=== PATIENT | male | born 1950 | race Caucasian/White ===

== ENCOUNTER → 2024-03-04 | Outpatient (CLI) | payer BC ==
[2024-03-04 17:36] LABS: INR 0.9 (<1.2); Partial Thromboplastin Time 24.9 sec (22.0-30.0)
[2024-03-05 02:52] LABS: HCT 46.8 % (39.6-50.0); HGB 15.8 g/dL (13.0-17.0); MCH 31.3 pg (27.0-32.0); MCHC 33.8 g/dL (32.0-37.0); MCV 92.9 FL (80.0-97.0); Mean Platelet Volume 11.4 FL (9.5-12.2); NRBC Per 100 WBC 0 X 10*3/uL (0.00-0.01); Platelet Count 258 X 10*3/uL (140-440); RBC 5.04 X 10*6/uL (4.40-5.60); RDW 12.9 % (11.5-14.5)
[2024-03-05 03:16] LABS: ALT 17 U/L (10-49); AST 18 U/L (14-35); Albumin 4.6 g/dL (3.8-4.9); Alkaline Phosphatase 164 U/L (41-126); BUN/Creat Ratio 17.18 Ratio (12.00-20.00); Blood Urea Nitrogen 18.9 mg/dL (9.0-27.0); Calcium 9.5 mg/dL (8.7-10.3); Carbon Dioxide 20.9 mmol/L (21.6-31.8); Chloride 103 mmol/L (96-109); Globulin 2.7 g/dL (1.6-3.3); Glucose 106 mg/dL (70-110); Potassium 4.4 mmol/L (3.5-5.5); Sodium 140 mmol/L (135-145); Total Bilirubin 0.5 mg/dL (0.3-1.2); Total Protein 7.3 g/dL (6.2-8.2)
== END | disposition home or self-care (01) ==
LOC: LABPAT 15:13
PROVIDERS: ATTEND Orthopaedic Surgery
DX: Z01.818 Encounter for other preprocedural examination (principal); I45.10 Unspecified right bundle-branch block; I49.8 Other specified cardiac arrhythmias; M16.11 Unilateral primary osteoarthritis, right hip; Z22.322 Carrier or suspected carrier of Methicillin resistant Staphylococcus aureus
CPT/HCPCS: 36415; 80053; 83036; 85027; 85610; 85730; 86850; 86900; 86901; 87070; 93005

== ENCOUNTER 2024-03-13 08:34 | Day surgery (SDC) | payer MEDICARE ==
[~2024-03-13 08:34] MED LIST: TRANEXAMIC 1,000 MG/100ML-NACL 1,000 MG in SALINE 1 100ML.BAG IV PRN; TRANEXAMIC 1,000 MG/100ML-NACL 1,000 MG in SALINE 1 100ML.BAG IVPB PRN
[2024-03-13] MEDS: fentaNYL (PF) 50 MCG/ML 2 ML AMP IVP ONE (08:40)
[2024-03-13] MEDS: MIDAZOLAM 2 MG/2 ML VIAL IVP ONE (08:40)
[2024-03-13] MEDS ORDERED: HYDROmorphone 0.5 MG/0.5 ML SYRINGE IVP PRN ×4 (08:51→10:31)
[2024-03-13] MEDS ORDERED: MIDAZOLAM 2 MG/2 ML VIAL IV PRN (08:51)
[2024-03-13] MEDS: LACTATED RINGERS 1,000 ML IV SCH (09:22)
[2024-03-13] MEDS: ACETAMINOPHEN TAB 500 MG TAB PO PRN (09:33)
[2024-03-13] MEDS: KETOROLAC 15 MG/ML 1 ML VIAL IVP PRN (09:33)
[2024-03-13] MEDS: DEXAMETHASONE SOD PHOSPHATE 10 MG/ML 1 ML VIAL IV PRN (09:33)
[2024-03-13] MEDS: FAMOTIDINE 20 MG/2 ML VIAL IVP PRN (09:33)
[2024-03-13] MEDS: ONDANSETRON 4 MG/2 ML VIAL IVP PRN (09:33)
[2024-03-13] MEDS: oxyCODONE ER 10 MG TAB.ER.12H PO PRN (09:33)
[2024-03-13] MEDS: DOCUSATE 100 MG CAP PO PRN (09:33)
--- NOTE | 2024-03-13 10:08 | P.ANPRN ---
Procedure Note - Anesthesia - Nerve Block Performed Right Ray Single Time Out Performed: Yes Date of Procedure: 03/13/24 Procedure Start Time: 09:39 Procedure Stop Time: 09:46 Location of Patient: PreOp Indication: Acute Post-Operative Pain, Requested by Surgeon Sedation Type: Sedate with meaningful contact maintained Preparation: Sterile Prep Position: Supine Needle Types: Pajunk Needle Gauge: 21 Ultrasound used to visualize needle placement: Yes Ultrasound used to observe medication spread: Yes Injectate: 0.5% Ropivacaine (see comment for volume) (25 ML + 4 MG dEXAMETHASON) Blood Aspirated: No Pain Paresthesia on Injection Noted: No Resistance on Injection: Normal Image Stored and Saved: Yes Events: Uneventful and Well Tolerated
[2024-03-13] MEDS ORDERED: DEXAMETHASONE SOD PHOSPHATE 4 MG/ML 1 ML VIAL ONE (10:11)
[2024-03-13] MEDS ORDERED: fentaNYL (PF) 50 MCG/ML 2 ML AMP ONE (10:11)
[2024-03-13] MEDS ORDERED: GLYCOPYRROLATE 0.2 MG/ML 2 ML VIAL ONE (10:11)
[2024-03-13] MEDS ORDERED: TRANEXAMIC 1,000 MG/100ML-NACL PREMIX BAG ONE (10:11)
[2024-03-13] MEDS ORDERED: PROPOFOL 10 MG/ML 20 ML VIAL IV ONE (10:11)
[2024-03-13] MEDS ORDERED: ROPIVACAINE 5 MG/ML 30 ML VIAL ONE (10:11)
[2024-03-13] MEDS ORDERED: SUCCINYLCHOLINE CHLORIDE 200 MG/10 ML VIAL IV ONE (10:11)
[2024-03-13] MEDS ORDERED: LIDOCAINE 1% INJ 10MG/ML (20 ML MDV) ONE (10:11)
[2024-03-13] MEDS ORDERED: ROCURONIUM 10 MG/ML (5 ML VIAL) IV ONE (10:11)
[2024-03-13] MEDS ORDERED: HYDROmorphone (PF) 1 MG/ML ONE (10:11)
[2024-03-13] MEDS ORDERED: NEOSTIGMINE 1 MG/ML 10 ML VIAL ONE (10:11)
[2024-03-13] MEDS ORDERED: ONDANSETRON 4 MG/2 ML VIAL IVP PRN (10:31)
[2024-03-13] MEDS ORDERED: ACETAMINOPHEN TAB 325 MG TAB PO PRN (10:31)
[2024-03-13] MEDS ORDERED: traMADol 50 MG TAB PO PRN (10:31)
[2024-03-13] MEDS ORDERED: MAGNESIUM HYDROXIDE 2,400 MG/30 ML CUP PO PRN (10:31)
[2024-03-13] MEDS ORDERED: NALOXONE 0.4 MG/ML 1 ML VIAL IV PRN (10:31)
[2024-03-13] MEDS ORDERED: HYDROcodone/APAP 5-325MG 1 EACH TAB PO PRN (10:31)
[2024-03-13] MEDS: ROPIVACAINE/EPI/CLONIDINE/KET 50 ML SYRINGE MISCELLANE PRN (10:56)
[2024-03-13] MEDS: LACTATED RINGERS 1,000 ML IV ONE (11:57)
[2024-03-13] MEDS: MULTIVITAMINS, THERA 1 EACH TAB PO SCH (12:34)
--- NOTE | 2024-03-13 12:40 | P.OP ---
Date of Procedure: 03/13/24 Preoperative Diagnosis: severe right hip osteoarthritis Postoperative Diagnosis: same Procedure(s) Performed: right direct anterior total hip arthroplasty Implants: 1. [place] Trident II Acetabular Cup, Size #56 2. Amarjit Insignia Size # 6 Femoral Stem, High Offset 3. Biolox delta femoral head, 36 mm, - 5 mm neck Anesthesia: HARI, pratik Surgeon: Adonis Johnson Backend Java Developer #1: Igor Hurst Estimated Blood Loss (ml): 300 IV fluids (ml): 900 Pathology: none sent Condition: stable Disposition: PACU Indications for Procedure: I had a long discussion with the patient in the office on the potential risks and complications of an elective total hip replacement through a direct anterior approach. Risks discussed include, but are certainly not limited to, risks from anesthesia, superficial infection requiring local wound care or antibiotics, deep stacia-prosthetic joint infection and the treatment required to eradicate infection, intraoperative fracture, postoperative periprosthetic fracture, damage to local blood vessels or nerves particularly the lateral femoral cutaneous nerve, delayed wound healing requiring local wound care or possibly surgical debridement, hip dislocation, leg length discrepancy, soft tissue irritation around the total hip implant such as iliopsoas tendinitis or trochanteric bursitis, wear and osteolysis from the implants, squeaking or audible noises, groin pain, thigh pain, heterotopic ossification, stiffness, aseptic loosening of the implants, dissatisfaction with surgical outcome, need for revision surgery, DVT, PE, swelling of the operative extremity, acute coronary event, stroke, failure to thrive, and possibly loss of life or limb. The patient understands that while these are the most common complications after an elective hip replacement there are certainly other less common complications possible. They were given ample time to ask questions regarding the potential complications of a hip replacement. Following our discussion the patient pr ovided their verbal and written consent to go forward with an elective total hip replacement. Operative Findings: severe right hip osteoarthritis Description of Procedure: The patient was identified in the preoperative holding area and the correct hip was marked with my initials. I reviewed the procedure and consent with the patient. All of their questions were answered. The patient was then brought back into the operating room by anesthesia. While on the [facility] anesthesia was administered by the anesthesia team. Preoperative antibiotics and tranexamic acid were also given. After the patient was under anesthesia I examined their ankles to determine their preoperative leg length discrepancy. The skin over the anterior aspect of the hip was shaved to remove hair over the site of planned incision. Both feet and ankles were padded with webril and boots for the [place] were applied. The patient was then carefully transferred onto the [place] table. A perineal post was immediately placed. The arms were placed on arm holders and were well-padded. Both boots were secured to the spars on the [place] table. The patient was positioned so that the pelvis was centered over the post. Nonsterile drapes were applied. A timeout was performed identifying the correct patient, operative extremity, and procedure. At this point fluoroscopy was brought in to take preoperative images of the pelvis and operative hip. Using the standing AP pelvis from the office as a template, a comparable image was obtained with fluoroscopy. A metallic bar was used to create a bi-ischial line for use as a reference to leg length adjustments during the procedure. Global offset was also measured on both the operative and nonoperative leg. Fluoroscopy was then brought out and a pre-scrub using a chlorhexidine scrub brush was performed. The operative limb was then prepped and draped in the standard sterile fashion. An anterior longitudinal incision was made lateral and distal to the ASIS. The skin and subcutaneous tissues were incised sharply. The underlying tensor fascia was identified and incised in its midportion. The fascia was dissected free from the underlying muscle and the muscle belly was retracted. A blunt tipped cobra retractor was placed over the superior neck under the muscle fibers of the gluteus minimus. The deep enveloping fascia of the tensor was incised. The anterior leash of vessels were then identified and cauterized. The fascia between the rectus and the capsule was then incised and the pre-capsular fat was excised. A second Cobra was placed inferior to the neck. The interval between the rectus and iliocapsularis and the hip capsule was developed and a retractor was placed carefully over the anterior rim of the acetabulum. A T-shaped anterior capsulotomy was performed. The superior capsular leaflet was left in place in the inferior capsular flap was excised. The Cobra retractors were placed intracapsularly. We then made a femoral neck osteotomy according to preoperative and intraoperative templating and confirmed the level of the osteotomy using fluoroscopic imaging. The femoral head was removed, passed off to the back table, and sized. The superior capsular flap was excised. Retractors were placed circumferentially exposing the acetabulum. We then circumferentially debrided the acetabulum free of labrum and osteophytes. The pulvinar was removed to fully visualize the cotyloid fossa. We then sequentially reamed to achieve peripheral fit and excellent bleeding subchondral bone. The socket was thoroughly irrigated. The acetabular component was impacted into the appropriate position using fluoroscopy to guide version, inclination, and depth of insertion taking care to have a comparable image of the AP pelvis to the standing image taken in the office. An excellent press-fit was achieved and final position was confirmed using fluoroscopy. The press fit was augmented with bony cancellus dome screws. The liner was then impacted into the socket. Attention was then turned to the femur. The remnant dorsal lateral capsule was excised. The short external rotators were visible and protected. A bone hook was used to confirm appropriate translation of the trochanter away from the acetabulum. The leg was then extended and adducted and the bone hook was used to elevate the femur for broaching. A box osteotome and blunt tipped canal sound was then utilized to gain access to the femoral canal. We then sequentially broached the femur in appropriate anteversion until excellent torsional stability was achieved. The neck cut was brought flush to the trial broach with a calcar planar. A trial neck and head were then placed onto the broach and the hip was atraumatically reduced under direct visualization. External rotation to 90 was performed to assess stability. Fluoroscopy was brought in. An AP and lateral fluoroscopic image of the proximal femur was obt ained to assess position and fill of the trial broach. An AP of the pelvis was then obtained and matched to the preoperative image taken. A bi-ischial bar was then placed and measurements were taken to assess changes in length and offset. The hip was then carefully dislocated, the proximal femur was exposed, and the trial implants were removed. The wound and proximal femur was thoroughly irriga [place] using sterile saline and pulsatile lavage. The final femoral implant was dispensed and gently tapped into place generating an excellent press-fit. The trunnion was cleansed and the final head was tapped into place to engage the Srinivasan taper. The acetabulum was irrigated and visualized to be free of debris. The hip was carefully reduced. Stability was checked clinically with external rotation to 90 and there was no evidence of instability. Final fluoroscopic images were taken. The wound was then thoroughly irrigated and soaked with a dilute Betadine rinse for 3 minutes. 3 L of sterile saline was irrigated through the wound using pulsatile lavage. Local anesthetic cocktail was injected into the soft tissues around the surgical field. The wound was then closed in layers. A sterile dressing was placed over the surgical incision. The drapes were taken down and the patient was carefully transferred off of the [place] table. Following removal of the boots the leg lengths felt acceptable. The patient was then taken to recovery room having tolerated the procedure well. Igor Hurst PA-C quite as a skilled behavioral assistant for patient positioning, draping, exposure, retraction, closure of wound, and application of dressing. PLAN: The patient can weight-bear as tolerated on the operative extremity. DVT prophylaxis with aspirin 81 mg twice a day based on preoperative risk str atification. Physical therapy for gait training. Leave surgical dressing in place. Internal medicine for perioperative medical management.
--- NOTE | 2024-03-13 13:03 | FL ---
EXAMINATION TYPE: FL guidance operating room, XR Hip Limited RT Intraoperative/procedural fluoroscopi c services were provided. Total fluoroscopy time is 56.9 seconds with a total of 7 submitted images t o PACS. Please see the operative/procedural note for further details. DAP: 3.2385 Gycm2
[2024-03-13] MEDS: SENNOSIDES-DOCUSATE SODIUM 1 EACH TAB PO SCH (19:41)
[2024-03-13] MEDS: ASPIRIN 81 MG PO SCH (19:42)
[2024-03-13] MEDS ORDERED: OXYMETAZOLINE 0.05% NASL SPRAY 1 SPRAY BOTTLE EA NOSTRIL PRN (20:51)
[2024-03-13] MEDS ORDERED: METRONIDAZOLE TOPICAL PRN (20:51)
[2024-03-13] MEDS: HYDROcodone/APAP 10-325MG 1 EACH TAB PO PRN (20:57)
[2024-03-14] MEDS: PANTOPRAZOLE 40 MG TABLET PO SCH (05:24)
[2024-03-14 07:14] VITALS: BP 125/70; PULSE 87; RESP 17; TEMP 97.8
[2024-03-14] MEDS: LOSARTAN 50 MG TAB PO SCH (07:49)
[2024-03-14] MEDS: NIFEdipine XL 90 MG TAB.ER.24 PO SCH (07:50)
[2024-03-14] MEDS: BUMETANIDE 0.5 MG TABLET PO SCH (07:50)
[2024-03-14] MEDS: FAMOTIDINE 20 MG TAB PO SCH (07:50)
[2024-03-14] MEDS: ATORVASTATIN 20 MG TAB PO SCH (07:50)
[2024-03-14] MEDS ORDERED: MULTIVITAMINS, THERA 1 EACH TAB PO SCH (09:00)
[2024-03-14 09:18] LABS: HCT 35.9 % (39.6-50.0); HGB 12.1 g/dL (13.0-17.0); MCH 31.3 pg (27.0-32.0); MCHC 33.7 g/dL (32.0-37.0); MCV 92.8 FL (80.0-97.0); Mean Platelet Volume 10.6 FL (9.5-12.2); NRBC Per 100 WBC 0 X 10*3/uL (0.00-0.01); Platelet Count 246 X 10*3/uL (140-440); RBC 3.87 X 10*6/uL (4.40-5.60); WBC 16.62 X 10*3/uL (4.50-10.00)
[2024-03-14 11:17] LABS: Basophils # (A) 0.03 X 10*3/uL (0.00-0.10); Basophils % (A) 0.2 %; Eosinophils # (A) 0 X 10*3/uL (0.04-0.35); Eosinophils % (A) 0 %; Lymphocytes # (A) 1.97 X 10*3/uL (0.90-5.00); Lymphocytes % (A) 11.9 %; Monocytes # (A) 1.85 X 10*3/uL (0.20-1.00); Monocytes % (A) 11.1 %; Neutrophils % (A) 76.4 %
[2024-03-14 11:18] LABS: RBC Morphology Normal (Normal)
--- NOTE | 2024-03-14 12:46 | P.DS ---
Providers Date of admission: Saturday03/13/2024 Attending physician: Adonis Johnson Consults: 03/13/24 10:31 Consult Physician Routine Consulting Provider: Tu Smith Consult Reason/Comments: post op medical management Do you want consulting provider notified?: Yes Primary care physician[facility] Course: The patient is a very pleasant previously healthy 73-year-old male who underwent an uncomplicated total hip replacement. Following surgery he was transferred to the orthopedic floor. He received 2 doses of postoperative antibiotics. He was transitioned from IV to oral pain medications. I saw him on postoperative day #1 and he was doing well. He had some mild burning pain in his thigh but had minimal pain in his hip. His dressing was intact. There is some bruising a round the thigh. Femoral nerve function was intact. He is able to actively plantar flex and dorsiflex his ankle and his toes. He worked with physical therapy and did well. Internal medicine was consulted for medical management. The cleared for discharge home. Plan - Discharge Summary Discharge Rx Participant: No New Discharge Prescriptions: New Aspirin 81 mg PO BID #60 tab HYDROcodone/APAP 5-325MG [[place] 5-325] 1 - 2 tab PO Q6HR PRN #32 tab PRN Reason: Pain Docusate [Colace] 100 mg PO BID #28 capsule Omeprazole 40 mg PO DAILY #30 cap No Action NIFEdipine XL [Procardia Xl] 90 mg PO DAILY Atorvastatin [Lipitor] 20 mg PO DAILY Multivitamins, Thera [Multivitamin (formulary)] 1 tab PO DAILY Bumetanide [BUMEX] 0.5 mg PO DAILY Aspirin 81 mg PO DAILY Pantoprazole Sodium [Protonix] 20 mg PO DAILY Telmisartan [Micardis] 40 mg PO DAILY Oxymetazoline 0.05% Nasl [place] [Afrin 0.05% Nasal [place]] 2 spray EA NOSTRIL BID PRN PRN Reason: seaonal allergies Acetaminophen [Tylenol Arthritis] 650 mg PO Q6H PRN PRN Reason: Pain metroNIDAZOLE [metroNIDAZOLE Lotion] 1 applic TOPICAL DIRECTED PRN PRN Reason: jock itch Discharge Medication List Acetaminophen [Tylenol Arthritis] 650 mg PO Q6H PRN 03/10/24 [History] Aspirin 81 mg PO DAILY 03/10/24 [History] Atorvastatin [Lipitor] 20 mg PO DAILY 03/10/24 [History] Bumetanide [BUMEX] 0.5 mg PO DAILY 03/10/24 [History] Multivitamins, Thera [Multivitamin (formulary)] 1 tab PO DAILY 03/10/24 [History] NIFEdipine XL [Procardia Xl] 90 mg PO DAILY 03/10/24 [History] Oxymetazoline 0.05% Nasl [place] [Afrin 0.05% Nasal [place]] 2 spray EA NOSTRIL BID PRN 03/10/24 [History] Pantoprazole Sodium [Protonix] 20 mg PO DAILY 03/10/24 [History] Telmisartan [Micardis] 40 mg PO DAILY 03/10/24 [History] metroNIDAZOLE [metroNIDAZOLE Lotion] 1 applic TOPICAL DIRECTED PRN 03/10/24 [History] Aspirin 81 mg PO BID #60 tab 03/13/24 [Rx] Docusate [Colace] 100 mg PO BID #28 capsule 03/13/24 [Rx] HYDROcodone/APAP 5-325MG [[place] 5-325] 1 - 2 tab PO Q6HR PRN #32 tab 03/13/24 [Rx] Omeprazole 40 mg PO DAILY #30 cap 03/13/24 [Rx] Follow up Appointment(s)/Referral(s): [facility] [[facility]] - 1-2 Days ([facility] will call you to schedule your in home physical therapy visits. ) Adonis Johnson MD [Medical Doctor] - 2 Weeks Activity/Diet/Wound Care/Special Instructions: 1. Weight-bear as tolerated on your operative extremity unless instructed otherwise. Use a walker or other assistive device to ambulate. 2. Leave surgical dressing in place. If your dressing becomes saturated with blood, there is drainage, or the dressing becomes loose please contact the office. 3. It is okay to shower with your surgical dressing, but do not submerge in water (no hot tubs, bath's, swimming etc.) 4. Make sure to take her blood clot prevention medication as prescribed (aspirin, Eliquis, Xarelto, and Plavix are commonly prescribed medications for blood clot prevention) 5. While taking [place] or Percocet for pain make sure you're taking a stool softener (Colace) and drink lots of water. 6. Keep all follow-up appointments as scheduled. You will usually be seen in 1-2 weeks following surgery. 7. Please contact the office with any questions or concerns [phone] Discharge Disposition: HOME WITH HOME HEALTH SERVICES
--- NOTE | 2024-03-14 14:54 | P.CONS ---
History of Present Illness - Reason for Consult Consult date: 03/14/24 medical management - History of Present Illness History of present illness;patient is a 73-year-old gentleman with past medical history significant for hypertension, hyperlipidemia, GERD who presented to the hospital for elective right hip total arthroplasty. Patient was following up outpatient with orthopedics for right hip pain, all conservators measures in the form of pain control and therapy had failed. Orthopedics Discussed with patient and he decided to proceed with right total hip arthroplasty. postoperatively internal medicine team were consulted for medical management REVIEW OF SYSTEMS: CONSTITUTIONAL: No fever, no malaise, no fatigue. HEENT: No recent visual problems or hearing problems. Denied any sore throat. CARDIOVASCULAR: No chest pain, orthopnea, PND, no palpitations, no syncope. PULMONARY: No shortness of breath, no cough, no hemoptysis. GASTROINTESTINAL: No diarrhea, no nausea, no vomiting, no abdominal pain. NEUROLOGICAL: No headaches, no weakness, no numbness. HEMATOLOGICAL: Denies any bleeding or petechiae. GENITOURINARY: Denies any burning micturition, frequency, or urgency. MUSCULOSKELETAL/RHEUMATOLOGICAL: right hip pain ENDOCRINE: Denies any polyuria or polydipsia. The rest of the 14-point review of systems is negative. PHYSICAL EXAMINATION: GENERAL: The patient is alert and oriented x3, not in any acute distress. Well developed, well nourished. HEENT: Pupils are round and equally reacting to light. EOMI. No scleral icterus. No conjunctival pallor. Normocephalic, atraumatic. No pharyngeal erythema. No thyromegaly. CARDIOVASCULAR: S1 and S2 present. No murmurs, rubs, or gallops. PULMONARY: Chest is clear to auscultation, no wheezing or crackles. ABDOMEN: Soft, nontender, nondistended, normoactive bowel sounds. No palpable organomegaly. MUSCULOSKELETAL: right hip surgical incision seen EXTREMITIES: No cyanosis, clubbing, or pedal edema. NEUROLOGICAL: Gross neurological examination did not reveal any focal deficits. SKIN: No rashes. Assessment and plan right hip osteoarthritis status post right hip total arthroplasty Hypertension Hyperlipidemia GERD Monitor vital signs Monitor CBC Monitor CMP Continue pain management per orthopedics Continue DVT prophylaxis per orthopedics Resume home meds PT and OT consulted Labs and medication were reviewed.. Continue same treatment. Continue with symptomatic treatment. Resume home medication. Monitor labs and vitals. DVT and GI prophylaxis. Further recommendations as per clinical course of the patient Dictation was produced using [employer] dictation software. please excuse any grammatical, word or spelling errors. Past Medical History Past Medical History: GERD/Reflux, Hyperlipidemia, Hypertension, Osteoarthritis (OA) Additional Past Medical History / Comment(s): hx. of PVC's, ankle swelling, seasonal allergies History of Any Multi-Drug Resistant Organisms: None Reported Past Surgical History: Orthopedic Surgery, Tonsillectomy Additional Past Surgical History / Comment(s): ORIF right heel, TURP, tanisha cataracts removed Past Anesthesia/Blood Transfusion Reactions: Previous Problems w/ Anesthesia Additional Past Anesthesia/Blood Transfusion Reaction / Comm: states was told he was kicking during TURP surg. Past Psychological History: No Psychological Hx Reported Smoking Status: Former smoker Past Alcohol Use History: Occasional Additional Past Alcohol Use History / Comment(s): quit smoking 12 yrs. ago, smoked for 40 yrs. 1ppd, 2-3 beers 3-4 days per week Past Drug Use History: Marijuana Additional Drug Use History / Comment(s): smokes occasional marijuana - Past Family History Mother Family Medical History: No Reported History Medications and Allergies Home Medications Medication Instructions Recorded Confirmed Type Acetaminophen [Tylenol Arthritis] 650 mg PO Q6H PRN 03/10/24 03/13/24 History Aspirin 81 mg PO DAILY 03/10/24 03/10/24 History Atorvastatin [Lipitor] 20 mg PO DAILY 03/10/24 03/13/24 History Bumetanide [BUMEX] 0.5 mg PO DAILY 03/10/24 03/13/24 History Multivitamins, Thera [Multivitamin 1 tab PO DAILY 03/10/24 03/10/24 History (formulary)] NIFEdipine XL [Procardia Xl] 90 mg PO DAILY 03/10/24 03/13/24 History Oxymetazoline 0.05% Nasl [place] 2 spray EA NOSTRIL BID PRN 03/10/24 03/13/24 History [Afrin 0.05% Nasal [place]] Pantoprazole Sodium [Protonix] 20 mg PO DAILY 03/10/24 03/13/24 History Telmisartan [Micardis] 40 mg PO DAILY 03/10/24 03/13/24 History metroNIDAZOLE [metroNIDAZOLE 1 applic TOPICAL DIRECTED PRN 03/10/24 03/13/24 History Lotion] Aspirin 81 mg PO BID #60 tab 03/13/24 Rx Docusate [Colace] 100 mg PO BID #28 capsule 03/13/24 Rx HYDROcodone/APAP 5-325MG [[place] 1 - 2 tab PO Q6HR PRN #32 tab 03/13/24 Rx 5-325] Omeprazole 40 mg PO DAILY #30 cap 03/13/24 Rx Allergies Allergy/AdvReac Type Severity Reaction Status Date / Time No Known Allergies Allergy Verified 03/13/24 09:00 Physical Exam Vitals: Vital Signs Temp Pulse Pulse Resp BP Pulse Ox 03/14/24 07:50 87 17 03/14/24 07:08 97.8 F 87 17 125/70 97 03/14/24 01:05 99.0 F 102 H 20 131/64 98 03/13/24 19:33 95 03/13/24 18:51 98.3 F 99 18 134/80 97 03/13/24 16:25 106 H 96 03/13/24 16:12 113 H 138/75 97 03/13/24 15:57 101 H 138/71 94 L 03/13/24 15:42 103 H 147/74 95 03/13/24 15:27 103 H 153/72 96 03/13/24 15:21 98.0 F 105 H 18 130/74 97 03/13/24 15:12 101 H 172/80 97 03/13/24 14:57 105 H 159/87 98 Intake and Output 03/13/24 03/14/24 03/14/24 22:59 06:59 14:59 Intake Total 900 Output Total 250 5 400 Balance -250 895 -400 Intake: Oral 900 Output: Urine 250 5 400 Other: Voiding Method Urinal Results CBC & Chem 7: 03/14/24 05:25 Labs: Abnormal Lab Results - Last 24 Hours (Table) 03/14/24 Range/Units 05:25 WBC 16.62 H (4.50-10.00) X 10*3/uL RBC 3.87 L (4.40-5.60) X 10*6/uL Hgb 12.1 L (13.0-17.0) g/dL Hct 35.9 L (39.6-50.0) % Immature Gran # 0.07 H (0.00-0.04) X 10*3/uL Neutrophils # 12.70 H (1.80-7.70) X 10*3/uL Monocytes # 1.85 H (0.20-1.00) X 10*3/uL Eosinophils # 0 L (0.04-0.35) X 10*3/uL
== END 2024-03-14 14:02 | disposition home health service (06) ==
LOC: OR 08:34 → 4SSUR 12:17 → OR 03-14 14:02
PROVIDERS: ATTEND Orthopaedic Surgery
DX: M16.11 Unilateral primary osteoarthritis, right hip (principal); M25.751 Osteophyte, right hip; G89.18 Other acute postprocedural pain; I10 Essential (primary) hypertension; F10.90 Alcohol use, unspecified, uncomplicated; E78.5 Hyperlipidemia, unspecified; Z98.890 Other specified postprocedural states; Z79.899 Other long term (current) drug therapy; Z90.89 Acquired absence of other organs; Z87.891 Personal history of nicotine dependence
CPT/HCPCS: 97116; 97162; 64447; 85025; 73501; 27130; C1776; J2250; J1100; J0690 ×2; J2405; J3010; J3490; J1885